=== PATIENT | female | born 1980 | race Caucasian/White ===

== ENCOUNTER 2016-09-05 15:25 | Inpatient (IN) | payer MEDICARE, MEDICAID ==
[~2016-09-05] VITALS: Ht 167.6 cm; Wt 177.0 kg
[2016-09-05 16:28] VITALS: BP 149/82
[2016-09-05] MEDS ORDERED: PALI234D IM (16:50)
[2016-09-05] MEDS ORDERED: QUET200T PO (16:50)
[2016-09-05] MEDS ORDERED: INFLUENZA VIRUS VACCINE QVS 2016-17 (3YR+)/PF 60 MCG/0.5 ML SYRINGE IM ONE (17:00)
[2016-09-05] MEDS ORDERED: ZOLPIDEM TARTRATE 10 MG TABLET PO PRN (17:00)
[2016-09-05 18:23] VITALS: BP 148/93
[2016-09-05] MEDS: LORazepam 2 MG TABLET PO PRN (20:51)
[2016-09-06 08:38] LABS: BASOPHILS % (AUTO) 0.3 % (0.0-2.0); EOSINOPHILS % (AUTO) 3.3 % (1.0-6.0); HEMATOCRIT 36.9 % (36-46); LYMPHOCYTES # (AUTO) 2.7 K/uL (1.0-4.8); LYMPHOCYTES % (AUTO) 29.9 % (22.0-44.0); MEAN CORPUSCULAR HGB CONC 32.4 G/dL (31.0-37.0); MEAN CORPUSCULAR VOLUME 84 fL (80-100); MONOCYTES # (AUTO) 0.5 K/uL (0.1-1.0); NEUTROPHILS # (AUTO) 5.5 K/uL (1.8-7.7); NEUTROPHILS % (AUTO) 61.5 % (40.0-70.0); PLATELET COUNT (AUTO) 351 K/uL (150-450); RED BLOOD CELL COUNT(AUTO) 4.42 MIL/uL (4.00-5.20); RED CELL DISTRIBUTION WIDTH 15.9 % (11.5-14.5)
[2016-09-06 08:49] LABS: HEMOGLOBIN A1C 6.2 % (4.5-6.2)
[2016-09-06 09:25] LABS: ALANINE AMINOTRANSFERASE 26 U/L (12-78); ALBUMIN 2.7 g/dL (3.4-5.0); ANION GAP 7 mmol/L (8-16); ASPARTATE AMINOTRANSFERASE 22 U/L (15-37); BILIRUBIN,TOTAL 0.4 mg/dL (0.1-1.0); CALCIUM, TOTAL 8.3 mg/dL (8.8-10.5); CARBON DIOXIDE 28 mmol/L (22-29); CHLORIDE 103 mmol/L (98-107); CHOL/HDL RATIO 3.4 (3.9-5.7); CREATININE 0.76 mg/dL (0.60-1.30); GLOMERULAR FILTR. RATE CALC > 60 mL/min (>60); POTASSIUM 4.7 mmol/L (3.5-5.1); SODIUM SERUM 138 mmol/L (136-145); TOTAL PROTEIN, SERUM 6.3 g/dL (6.4-8.2); UREA NITROGEN, BLOOD 9 mg/dL (7-18)
[2016-09-06] MEDS: QUEtiapine FUMARATE 200 MG TABLET PO SCH (20:54)
[2016-09-06] MEDS ORDERED: LORazepam 2 MG/ML VIAL ONE (21:10)
[2016-09-06] MEDS ORDERED: HALOPERIDOL LACTATE 5 MG/ML VIAL ONE (21:11)
[2016-09-06] MEDS ORDERED: DiphenhydrAMINE HCL 50 MG/ML VIAL ONE (21:11)
[2016-09-06] MEDS ORDERED: DiphenhydrAMINE HCL 50 MG/ML VIAL IM ONE (21:15)
[2016-09-06] MEDS ORDERED: HALOPERIDOL LACTATE 5 MG/ML VIAL IM ONE (21:15)
[2016-09-06] MEDS ORDERED: LORazepam 2 MG/ML VIAL IM ONE (21:15)
[2016-09-07 08:02] VITALS: BP 132/78
[2016-09-07] MEDS ORDERED: PALIPERIDONE PALMITATE 234 MG/1.5 ML SYRINGE IM SCH (09:00)
[2016-09-07] MEDS ORDERED: LORazepam 2 MG/ML VIAL ONE (10:58)
[2016-09-07] MEDS ORDERED: DiphenhydrAMINE HCL 50 MG/ML VIAL ONE (10:59)
[2016-09-07] MEDS ORDERED: HALOPERIDOL LACTATE 5 MG/ML VIAL ONE (10:59)
[2016-09-07] MEDS ORDERED: DiphenhydrAMINE HCL 50 MG/ML VIAL IM ONE (11:00)
[2016-09-07] MEDS ORDERED: LORazepam 2 MG/ML VIAL IM ONE (11:00)
[2016-09-07] MEDS ORDERED: HALOPERIDOL LACTATE 5 MG/ML VIAL IM ONE (11:00)
[2016-09-07] MEDS: QUEtiapine FUMARATE 200 MG TABLET PO SCH (21:00)
[2016-09-08] MEDS ORDERED: HALOPERIDOL LACTATE 5 MG/ML VIAL ONE (08:21)
[2016-09-08] MEDS ORDERED: LORazepam 2 MG/ML VIAL ONE (08:21)
[2016-09-08] MEDS ORDERED: DiphenhydrAMINE HCL 50 MG/ML VIAL ONE (08:21)
[2016-09-08] MEDS ORDERED: LORazepam 2 MG/ML VIAL IM ONE (08:30)
[2016-09-08] MEDS ORDERED: HALOPERIDOL LACTATE 5 MG/ML VIAL IM ONE (08:30)
[2016-09-08] MEDS ORDERED: DiphenhydrAMINE HCL 50 MG/ML VIAL IM ONE (08:30)
[2016-09-08 08:52] VITALS: BP 141/92
[2016-09-08 09:00] VITALS: BP 117/84
[2016-09-08 16:29] VITALS: BP 126/94
[2016-09-08] MEDS: LITHIUM CARBONATE 300 MG CAPSULE PO SCH (17:00)
[2016-09-08] MEDS: QUEtiapine FUMARATE 200 MG TABLET PO SCH (20:04)
[2016-09-09 06:45] VITALS: BP 124/78
[2016-09-09 08:03] VITALS: BP 120/64
[2016-09-09] MEDS: LITHIUM CARBONATE 300 MG CAPSULE PO SCH ×2 (09:00→17:00)
[2016-09-09] MEDS: QUEtiapine FUMARATE 200 MG TABLET PO SCH (20:10)
[2016-09-10 06:48] VITALS: BP 118/71
[2016-09-10 08:40] VITALS: BP 127/87
[2016-09-10] MEDS: LITHIUM CARBONATE 300 MG CAPSULE PO SCH ×2 (09:00→17:00)
[2016-09-10] MEDS ORDERED: HydrOXYzine PAMOATE 50 MG CAPSULE PO PRN (14:45)
[2016-09-10] MEDS ORDERED: ACETAMINOPHEN 325 MG TABLET PO PRN (14:45)
[2016-09-10] MEDS ORDERED: QUEtiapine FUMARATE 100 MG TABLET PO PRN (14:45)
[2016-09-10] MEDS ORDERED: GuaiFENesin/D-METHORPHAN [SUGAR-FREE] 200-20MG/10 ML SYRUP UDCUP PO PRN (14:45)
[2016-09-10] MEDS ORDERED: MAGNESIUM HYDROXIDE SUSPENSION 30 ML UDCUP PO PRN (14:45)
[2016-09-10] MEDS ORDERED: LOPERAMIDE HCL 2 MG CAPSULE PO PRN (14:45)
[2016-09-10] MEDS ORDERED: MAG HYDROX/AL HYDROX/SIMETH ES 30 ML SUSPENSION UDCUP PO PRN (14:45)
[2016-09-10] MEDS ORDERED: PROMETHAZINE HCL 25 MG TABLET PO PRN (14:45)
[2016-09-10] MEDS: THIAMINE HCL 100 MG TABLET PO SCH (16:30)
[2016-09-10] MEDS ORDERED: HALOPERIDOL LACTATE 5 MG/ML VIAL IM ONE (18:00)
[2016-09-10] MEDS ORDERED: DiphenhydrAMINE HCL 50 MG/ML VIAL IM ONE (18:00)
[2016-09-10] MEDS ORDERED: LORazepam 2 MG/ML VIAL IM ONE (18:00)
[2016-09-10] MEDS ORDERED: QUEtiapine FUMARATE 200 MG TABLET PO SCH (21:00)
[2016-09-10] MEDS: QUEtiapine FUMARATE 200 MG TABLET PO SCH (21:10)
[2016-09-11 08:00] VITALS: BP 116/64
[2016-09-11] MEDS: THIAMINE HCL 100 MG TABLET PO SCH ×2 (08:29→16:13)
[2016-09-11] MEDS: FOLIC ACID 1 MG TABLET PO SCH (08:29)
[2016-09-11] MEDS: MULTIVITAMINS WITH MINERALS, THERAPEUTIC TABLET PO SCH (08:29)
[2016-09-11] MEDS: LITHIUM CARBONATE 300 MG CAPSULE PO SCH (08:30)
[2016-09-11 08:48] LABS: CHOL/HDL RATIO 3.2 (3.9-5.7); CREATINE KINASE, TOTAL 44 U/L (26-192); THYROID STIMULATING HORMONE 3.03 uIU/mL (0.36-3.74)
[2016-09-11 09:33] LABS: HEMOGLOBIN A1C 6.4 % (4.5-6.2)
[2016-09-11 16:17] VITALS: BP 139/87
[2016-09-11] MEDS: QUEtiapine FUMARATE 200 MG TABLET PO SCH (20:19)
[2016-09-12 03:20] VITALS: BP 131/89
[2016-09-12] MEDS: LORazepam 2 MG TABLET PO PRN (03:22)
[2016-09-12] MEDS ORDERED: INSULIN ASPART 100 UNITS/ML SQ PRN (10:30)
[2016-09-12] MEDS ORDERED: GLUCAGON,HUMAN RECOMBINANT 1 MG VIAL IM PRN (10:30)
[2016-09-12] MEDS: THIAMINE HCL 100 MG TABLET PO SCH ×2 (12:47→16:20)
[2016-09-12] MEDS: FOLIC ACID 1 MG TABLET PO SCH (12:47)
[2016-09-12] MEDS: MULTIVITAMINS WITH MINERALS, THERAPEUTIC TABLET PO SCH (12:48)
[2016-09-12] MEDS ORDERED: QUET200T29 PO (13:59)
[2016-09-12 14:04] LABS: HEPATITIS Bs ANTIGEN SCREEN P Negative (Negative); HEPATITIS C AB SCREEN <0.1 s/co ratio (0.0-0.9)
[2016-09-12 16:40] VITALS: BP 122/66
[2016-09-12] MEDS: QUEtiapine FUMARATE 200 MG TABLET PO SCH (20:05)
[2016-09-13] MEDS: THIAMINE HCL 100 MG TABLET PO SCH (08:24)
[2016-09-13] MEDS: FOLIC ACID 1 MG TABLET PO SCH (08:24)
[2016-09-13] MEDS: MULTIVITAMINS WITH MINERALS, THERAPEUTIC TABLET PO SCH (08:24)
== END 2016-09-13 11:10 | disposition home or self-care (01) | DRG 885 ==
LOC: B3A 16:56
PROVIDERS: ADMIT Psychiatry & Neurology Psychiatry; ATTEND Psychiatry & Neurology Psychiatry
DX: F25.0 Schizoaffective disorder, bipolar type (principal); E46 Unspecified protein-calorie malnutrition; Z68.44 Body mass index [BMI] 60.0-69.9, adult; E11.9 Type 2 diabetes mellitus without complications; E55.9 Vitamin D deficiency, unspecified; E66.01 Morbid (severe) obesity due to excess calories; F60.9 Personality disorder, unspecified; K59.00 Constipation, unspecified; R45.850 Homicidal ideations; Z62.819 Personal history of unspecified abuse in childhood; F31.2 Bipolar disorder, current episode manic severe with psychotic features; Z91.14 Patient's other noncompliance with medication regimen; Z28.21 Immunization not carried out because of patient refusal; Z86.718 Personal history of other venous thrombosis and embolism; Z88.8 Allergy status to other drugs, medicaments and biological substances; Z78.1 Physical restraint status
CPT/HCPCS: 80074; 82306; 82607; 82746; 83036; 83735; 84439; 84443; 86592; 87081; J1200; J1630; J2060

== ENCOUNTER 2016-09-20 11:31 | Inpatient (IN) | payer MEDICARE, MEDICAID ==
[~2016-09-20] VITALS: Ht 167.6 cm; Wt 172.4 kg
[~2016-09-20 11:31] MED LIST: QUET200T29 PO
[2016-09-20] MEDS ORDERED: ZOLPIDEM TARTRATE 10 MG TABLET PO PRN (14:15)
[2016-09-20] MEDS ORDERED: HydrOXYzine PAMOATE 50 MG CAPSULE PO PRN (14:15)
[2016-09-20] MEDS ORDERED: GuaiFENesin/D-METHORPHAN [SUGAR-FREE] 200-20MG/10 ML SYRUP UDCUP PO PRN (14:15)
[2016-09-20] MEDS ORDERED: LOPERAMIDE HCL 2 MG CAPSULE PO PRN (14:15)
[2016-09-20] MEDS ORDERED: MAG HYDROX/AL HYDROX/SIMETH ES 30 ML SUSPENSION UDCUP PO PRN (14:15)
[2016-09-20] MEDS ORDERED: MAGNESIUM HYDROXIDE SUSPENSION 30 ML UDCUP PO PRN (14:15)
[2016-09-20] MEDS ORDERED: QUEtiapine FUMARATE 100 MG TABLET PO PRN (14:15)
[2016-09-20] MEDS ORDERED: TUBERCULIN, PURIFIED PROTEIN DERIVATIVE 5 TU/0.1 ML SYG ID ONE (14:15)
[2016-09-20] MEDS ORDERED: PROMETHAZINE HCL 25 MG TABLET PO PRN (14:15)
[2016-09-20] MEDS ORDERED: ACETAMINOPHEN 325 MG TABLET PO PRN (14:15)
[2016-09-20 16:14] VITALS: BP 136/82
[2016-09-20] MEDS ORDERED: INFLUENZA VIRUS VACCINE QVS 2016-17 (3YR+)/PF 60 MCG/0.5 ML SYRINGE IM ONE (17:00)
[2016-09-20] MEDS: THIAMINE HCL 100 MG TABLET PO SCH (17:06)
[2016-09-20 17:34] VITALS: BP 146/85
[2016-09-20] MEDS: QUEtiapine FUMARATE 200 MG TABLET PO SCH (20:15)
[2016-09-21 03:17] VITALS: BP 137/77
[2016-09-21 08:02] LABS: BASOPHILS % (AUTO) 0.3 % (0.0-2.0); EOSINOPHILS % (AUTO) 3.5 % (1.0-6.0); HEMATOCRIT 38.8 % (36-46); HEMOGLOBIN 12.3 g/dL (12.0-16.0); LYMPHOCYTES # (AUTO) 2.8 K/uL (1.0-4.8); LYMPHOCYTES % (AUTO) 35.1 % (22.0-44.0); MEAN CORPUSCULAR HEMOGLOBIN 26.9 pg (26.0-34.0); MEAN CORPUSCULAR HGB CONC 31.8 G/dL (31.0-37.0); MEAN CORPUSCULAR VOLUME 84 fL (80-100); MONOCYTES # (AUTO) 0.3 K/uL (0.1-1.0); NEUTROPHILS # (AUTO) 4.5 K/uL (1.8-7.7); NEUTROPHILS % (AUTO) 57.1 % (40.0-70.0); PLATELET COUNT (AUTO) 380 K/uL (150-450); RED BLOOD CELL COUNT(AUTO) 4.59 MIL/uL (4.00-5.20); RED CELL DISTRIBUTION WIDTH 16.3 % (11.5-14.5)
[2016-09-21 08:17] LABS: HEMOGLOBIN A1C 6.5 % (4.5-6.2)
[2016-09-21 08:24] LABS: ALANINE AMINOTRANSFERASE 27 U/L (12-78); ANION GAP 7 mmol/L (8-16); ASPARTATE AMINOTRANSFERASE 21 U/L (15-37); BILIRUBIN,TOTAL 0.4 mg/dL (0.1-1.0); CALCIUM, TOTAL 8.7 mg/dL (8.8-10.5); CARBON DIOXIDE 30 mmol/L (22-29); CHLORIDE 103 mmol/L (98-107); CHOL/HDL RATIO 3.3 (3.9-5.7); CREATININE 0.81 mg/dL (0.60-1.30); GLOMERULAR FILTR. RATE CALC > 60 mL/min (>60); POTASSIUM 4.1 mmol/L (3.5-5.1); SODIUM SERUM 140 mmol/L (136-145); THYROID STIMULATING HORMONE 3.34 uIU/mL (0.36-3.74); TOTAL PROTEIN, SERUM 6.7 g/dL (6.4-8.2); UREA NITROGEN, BLOOD 12 mg/dL (7-18)
[2016-09-21] MEDS: THIAMINE HCL 100 MG TABLET PO SCH ×2 (09:00→16:15)
[2016-09-21] MEDS: MULTIVITAMINS WITH MINERALS, THERAPEUTIC TABLET PO SCH (09:00)
[2016-09-21] MEDS: FOLIC ACID 1 MG TABLET PO SCH (09:00)
[2016-09-21 16:00] VITALS: BP 130/74
[2016-09-21] MEDS: QUEtiapine FUMARATE 200 MG TABLET PO SCH (20:02)
[2016-09-22 06:00] VITALS: BP 132/78
[2016-09-22 06:32] LABS: GLUCOSE,POINT OF CARE 93 MG/DL (70-110)
[2016-09-22] MEDS: MULTIVITAMINS WITH MINERALS, THERAPEUTIC TABLET PO SCH (09:05)
[2016-09-22] MEDS: FOLIC ACID 1 MG TABLET PO SCH (09:05)
[2016-09-22] MEDS: THIAMINE HCL 100 MG TABLET PO SCH ×2 (09:05→16:43)
[2016-09-22 16:00] VITALS: BP 144/88
[2016-09-22] MEDS: RisperiDONE 1 MG TABLET PO SCH (17:16)
[2016-09-23] MEDS ORDERED: LORazepam 2 MG/ML VIAL ONE (04:14)
[2016-09-23] MEDS ORDERED: HALOPERIDOL LACTATE 5 MG/ML VIAL ONE (04:14)
[2016-09-23] MEDS ORDERED: DiphenhydrAMINE HCL 50 MG/ML VIAL ONE (04:14)
[2016-09-23] MEDS ORDERED: HALOPERIDOL LACTATE 5 MG/ML VIAL IM ONE (04:15)
[2016-09-23] MEDS ORDERED: DiphenhydrAMINE HCL 50 MG/ML VIAL IM ONE (04:15)
[2016-09-23] MEDS ORDERED: LORazepam 2 MG/ML VIAL IM ONE (04:15)
[2016-09-23] MEDS: THIAMINE HCL 100 MG TABLET PO SCH ×2 (09:00→16:20)
[2016-09-23] MEDS: MULTIVITAMINS WITH MINERALS, THERAPEUTIC TABLET PO SCH (09:00)
[2016-09-23] MEDS: RisperiDONE 1 MG TABLET PO SCH ×2 (09:00→16:21)
[2016-09-23] MEDS: FOLIC ACID 1 MG TABLET PO SCH (09:00)
[2016-09-23] MEDS ORDERED: RISP1 PO ×2 (15:26→16:20)
[2016-09-23 16:27] VITALS: BP 131/77
== END 2016-09-23 17:45 | disposition home or self-care (01) | DRG 885 ==
LOC: B3A 16:39 → EDSTATUS 16:41
PROVIDERS: ADMIT Psychiatry & Neurology Psychiatry; ATTEND Psychiatry & Neurology Psychiatry
DX: F31.2 Bipolar disorder, current episode manic severe with psychotic features (principal); Z68.44 Body mass index [BMI] 60.0-69.9, adult; E66.3 Overweight; E66.01 Morbid (severe) obesity due to excess calories; G25.81 Restless legs syndrome; Z79.899 Other long term (current) drug therapy; Z88.8 Allergy status to other drugs, medicaments and biological substances; Z91.19 Patient's noncompliance with other medical treatment and regimen; Z28.21 Immunization not carried out because of patient refusal
CPT/HCPCS: 82962; 83036; 84439; 84443; 86592; 87081; J1200; J1630; J2060

== ENCOUNTER 2022-01-15 14:07 | Inpatient (IN) | payer MEDICARE, MEDICAID ==
[~2022-01-15] VITALS: Ht 165.1 cm; Wt 169.1 kg
[~2022-01-15 14:07] MED LIST changes: -QUET200T29 PO; +RISP1TAB48 PO
[2022-01-15 16:21] LABS: GLUCOSE,POINT OF CARE 220 MG/DL (70-110)
[2022-01-15] MEDS ORDERED: MIDAZOLAM HCL 2 MG/2 ML VIAL IM ONE (16:30)
[2022-01-15] MEDS ORDERED: HALOPERIDOL LACTATE 5 MG/ML VIAL IM ONE (16:30)
[2022-01-15] MEDS ORDERED: DiphenhydrAMINE HCL 50 MG/ML VIAL IM ONE (16:30)
[2022-01-15] MEDS ORDERED: ZOLPIDEM TARTRATE 10 MG TABLET PO PRN (17:45)
[2022-01-15 18:03] LABS: COVID AG,FIA SOURCE NASAL SWAB
[2022-01-15 18:40] LABS: BASOPHILS % (AUTO) 0.4 % (0.0-2.0); EOSINOPHILS % (AUTO) 3.7 % (1.0-6.0); HEMATOCRIT 39.9 % (36-46); LYMPHOCYTES # (AUTO) 1.8 K/uL (1.0-4.8); LYMPHOCYTES % (AUTO) 21.6 % (22.0-44.0); MEAN CORPUSCULAR HEMOGLOBIN 27.8 pg (26.0-34.0); MEAN CORPUSCULAR HGB CONC 32.6 G/dL (31.0-37.0); MEAN CORPUSCULAR VOLUME 85 fL (80-100); MONOCYTES # (AUTO) 0.2 K/uL (0.1-1.0); MONOCYTES % (AUTO) 2.9 % (2.0-9.0); NEUTROPHILS % (AUTO) 71.4 % (40.0-70.0); PLATELET COUNT (AUTO) 295 K/uL (150-450); RED BLOOD CELL COUNT(AUTO) 4.68 MIL/uL (4.00-5.20); RED CELL DISTRIBUTION WIDTH 14.8 % (11.5-14.5)
[2022-01-15 18:48] LABS: ANION GAP 7 mmol/L (8-16); CALCIUM, TOTAL 9.4 mg/dL (8.8-10.5); CARBON DIOXIDE 30 mmol/L (22-29); CHLORIDE 97 mmol/L (98-107); CREATININE 0.77 mg/dL (0.60-1.30); GLOMERULAR FILTR. RATE CALC > 60 mL/min (>60); GLUCOSE,RANDOM 283 mg/dL (70-110); POTASSIUM 3.8 mmol/L (3.5-5.1); SODIUM SERUM 134 mmol/L (136-145); UREA NITROGEN, BLOOD 13 mg/dL (7-18)
[2022-01-15 18:53] LABS: ALANINE AMINOTRANSFERASE 31 U/L (12-78); ALBUMIN 3.2 g/dL (3.4-5.0); ALKALINE PHOSPHATASE 98 U/L (46-116); ASPARTATE AMINOTRANSFERASE 23 U/L (15-37); BILIRUBIN,TOTAL 0.5 mg/dL (0.1-1.0); TOTAL PROTEIN, SERUM 7.4 g/dL (6.4-8.2)
[2022-01-15 20:27] LABS: HCG,QUANTITATIVE < 1 mIU/mL (0-6)
[2022-01-15] MEDS ORDERED: DEXTROSE 50%-WATER 25 GM/50 ML SYRINGE IVP PRN (21:30)
[2022-01-15] MEDS: INSULIN LISPRO 100 UNITS/ML SQ PRN (22:48)
[2022-01-15 23:01] LABS: GLUCOMETER DEV NAME(LOC) 3E.C; GLUCOSE,POINT OF CARE 293 MG/DL (70-110)
[2022-01-16 06:01] VITALS: BP 145/80
[2022-01-16] MEDS: LORazepam 2 MG TABLET PO PRN (06:05)
[2022-01-16] MEDS: HALOPERIDOL 5 MG TABLET PO PRN (06:05)
[2022-01-16 06:12] LABS: GLUCOMETER DEV NAME(LOC) 3E.C; GLUCOSE,POINT OF CARE 254 MG/DL (70-110)
[2022-01-16] MEDS ORDERED: MAGNESIUM HYDROXIDE SUSPENSION 30 ML UDCUP PO PRN (07:00)
[2022-01-16] MEDS ORDERED: ACETAMINOPHEN 325 MG TABLET PO PRN (07:00)
[2022-01-16] MEDS ORDERED: NICOTINE 14 MG/24 HOUR PATCH TD PRN (07:00)
[2022-01-16] MEDS ORDERED: GuaiFENesin/D-METHORPHAN [SUGAR-FREE] 200-20MG/10 ML SYRUP UDCUP PO PRN (07:00)
[2022-01-16] MEDS ORDERED: ONDANSETRON HCL 4 MG TABLET PO PRN (07:00)
[2022-01-16] MEDS ORDERED: ALBUTEROL SULFATE HFA 90 MCG/PUFF 8 GM INHALER IH PRN (07:00)
[2022-01-16] MEDS ORDERED: DOCUSATE SODIUM 100 MG CAPSULE PO PRN (07:00)
[2022-01-16] MEDS ORDERED: PETROLATUM,WHITE 28 GM JELLY TP PRN (07:00)
[2022-01-16] MEDS ORDERED: CloNIDine HCL 0.1 MG TABLET PO PRN (07:00)
[2022-01-16] MEDS ORDERED: MAG HYDROX/AL HYDROX/SIMETH ES 30 ML SUSPENSION UDCUP PO PRN (07:00)
[2022-01-16] MEDS ORDERED: IBUPROFEN 400 MG TABLET PO PRN (07:00)
[2022-01-16] MEDS ORDERED: LOPERAMIDE HCL 2 MG CAPSULE PO PRN (07:00)
[2022-01-16] MEDS: INSULIN LISPRO 100 UNITS/ML SQ PRN ×4 (07:06→21:04)
[2022-01-16] MEDS: BuPROPion HCL 100 MG SR TABLET PO SCH (11:00)
[2022-01-16 11:04] VITALS: BP 157/95
[2022-01-16 11:41] LABS: GLUCOMETER DEV NAME(LOC) 3E.C; GLUCOSE,POINT OF CARE 270 MG/DL (70-110)
[2022-01-16] MEDS: FLUoxetine HCL 10 MG CAPSULE PO SCH (11:53)
[2022-01-16] MEDS: SitaGLIPtin PHOSPHATE 100 MG TABLET PO SCH (16:19)
[2022-01-16] MEDS: RisperiDONE 1 MG TABLET PO SCH ×2 (16:21→20:25)
[2022-01-16 16:35] LABS: GLUCOMETER DEV NAME(LOC) 3E.C; GLUCOSE,POINT OF CARE 267 MG/DL (70-110)
[2022-01-16 20:16] LABS: GLUCOMETER DEV NAME(LOC) 3E.C; GLUCOSE,POINT OF CARE 324 MG/DL (70-110)
[2022-01-16] MEDS: TraZODone HCL 50 MG TABLET PO SCH (20:25)
[2022-01-16 21:37] LABS: APPEARANCE,URINE CLEAR (CLEAR); BILIRUBIN,URINE NEGATIVE (NEGATIVE); GLUCOSE, URINE (UA) >=1000 mg/dL (NEGATIVE); KETONES,URINE NEGATIVE (NEGATIVE); LEUKOCYTE ESTERASE ,URINE MODERATE (NEGATIVE); NITRATE,URINE NEGATIVE (NEGATIVE); OCCULT BLOOD,URINE MODERATE (NEGATIVE); PROTEIN,URINE NEGATIVE (NEGATIVE); SPECIFIC GRAVITIY, URINE 1.021 (1.003-1.030); UROBILINOGEN,URINE <=1.0 mg/dL (<=1.0)
[2022-01-16 21:43] LABS: AMPHET/METH SCREEN,URINE NEGATIVE (NEGATIVE); BARBITURATE SCREEN, URINE NEGATIVE (NEGATIVE); BENZODIAZEPINES SCREEN,URINE POSITIVE (NEGATIVE); CANNABINOID SCREEN,URINE NEGATIVE (NEGATIVE); COCAINE SCREEN,URINE NEGATIVE (NEGATIVE); METHADONE SCREEN, URINE NEGATIVE (NEGATIVE); OPIATE SCREEN,URINE NEGATIVE (NEGATIVE); PHENCYCLIDINE SCREEN,URINE NEGATIVE (NEGATIVE)
[2022-01-16 21:46] LABS: BACTERIA,URINE Rare /HPF (None Seen)
[2022-01-16 21:47] LABS: SQUAMOUS EPITHELIAL CELL,UR Few /LPF (None Seen)
[2022-01-16] MEDS ORDERED: DiphenhydrAMINE HCL 50 MG/ML VIAL ONE (22:33)
[2022-01-16] MEDS: CEPHALEXIN MONOHYDRATE 500 MG CAPSULE PO SCH (22:39)
[2022-01-16] MEDS ORDERED: HALOPERIDOL LACTATE 5 MG/ML VIAL IM ONE (22:45)
[2022-01-16] MEDS ORDERED: LORazepam 2 MG/ML VIAL IM ONE (22:45)
[2022-01-16] MEDS ORDERED: DiphenhydrAMINE HCL 50 MG/ML VIAL IM ONE (22:45)
[2022-01-17] MEDS: INSULIN LISPRO 100 UNITS/ML SQ PRN ×4 (07:05→20:08)
[2022-01-17 07:11] LABS: GLUCOMETER DEV NAME(LOC) 3E.C; GLUCOSE,POINT OF CARE 210 MG/DL (70-110)
[2022-01-17 08:00] VITALS: BP 131/86
[2022-01-17] MEDS: BuPROPion HCL 100 MG SR TABLET PO SCH (09:00)
[2022-01-17] MEDS: CEPHALEXIN MONOHYDRATE 500 MG CAPSULE PO SCH ×3 (09:11→16:24)
[2022-01-17] MEDS: SitaGLIPtin PHOSPHATE 100 MG TABLET PO SCH ×2 (09:11→10:45)
[2022-01-17] MEDS: RisperiDONE 1 MG TABLET PO SCH ×2 (09:12→16:24)
[2022-01-17] MEDS: FLUoxetine HCL 10 MG CAPSULE PO SCH (09:12)
[2022-01-17 11:11] LABS: GLUCOMETER DEV NAME(LOC) 3E.C; GLUCOSE,POINT OF CARE 236 MG/DL (70-110)
[2022-01-17 16:11] LABS: GLUCOMETER DEV NAME(LOC) 3E.C; GLUCOSE,POINT OF CARE 266 MG/DL (70-110)
[2022-01-17 16:40] VITALS: BP 149/98
[2022-01-17 20:17] LABS: GLUCOMETER DEV NAME(LOC) 3E.C; GLUCOSE,POINT OF CARE 299 MG/DL (70-110)
[2022-01-17] MEDS: TraZODone HCL 50 MG TABLET PO SCH (21:00)
[2022-01-17] MEDS: LORazepam 2 MG TABLET PO PRN (22:48)
[2022-01-17] MEDS: HALOPERIDOL 5 MG TABLET PO PRN (22:48)
[2022-01-18] MEDS: INSULIN LISPRO 100 UNITS/ML SQ PRN ×4 (07:02→21:05)
[2022-01-18 07:11] LABS: GLUCOMETER DEV NAME(LOC) 3E.C; GLUCOSE,POINT OF CARE 200 MG/DL (70-110)
[2022-01-18 09:42] VITALS: BP 104/65
[2022-01-18] MEDS: BuPROPion HCL 100 MG SR TABLET PO SCH (10:45)
[2022-01-18] MEDS: RisperiDONE 1 MG TABLET PO SCH ×2 (10:49→16:19)
[2022-01-18] MEDS: CEPHALEXIN MONOHYDRATE 500 MG CAPSULE PO SCH ×3 (10:49→17:32)
[2022-01-18] MEDS: FLUoxetine HCL 10 MG CAPSULE PO SCH (10:50)
[2022-01-18 12:26] LABS: GLUCOMETER DEV NAME(LOC) 3E.C; GLUCOSE,POINT OF CARE 357 MG/DL (70-110)
[2022-01-18 16:01] LABS: GLUCOMETER DEV NAME(LOC) 3E.C; GLUCOSE,POINT OF CARE 279 MG/DL (70-110)
[2022-01-18 16:39] VITALS: BP 147/92
[2022-01-18 20:51] LABS: GLUCOMETER DEV NAME(LOC) 3E.C; GLUCOSE,POINT OF CARE 341 MG/DL (70-110)
[2022-01-18] MEDS: TraZODone HCL 50 MG TABLET PO SCH (21:00)
[2022-01-18 22:25] VITALS: BP 144/88
[2022-01-19 06:16] LABS: GLUCOMETER DEV NAME(LOC) 3E.C; GLUCOSE,POINT OF CARE 218 MG/DL (70-110)
[2022-01-19] MEDS: INSULIN LISPRO 100 UNITS/ML SQ PRN ×2 (06:36→11:30)
[2022-01-19] MEDS: SitaGLIPtin PHOSPHATE 100 MG TABLET PO SCH (08:49)
[2022-01-19] MEDS: FLUoxetine HCL 10 MG CAPSULE PO SCH (08:49)
[2022-01-19] MEDS: RisperiDONE 1 MG TABLET PO SCH ×2 (08:49→17:45)
[2022-01-19] MEDS: BuPROPion HCL 100 MG SR TABLET PO SCH (08:49)
[2022-01-19] MEDS: CEPHALEXIN MONOHYDRATE 500 MG CAPSULE PO SCH ×3 (08:49→17:45)
[2022-01-19 09:11] VITALS: BP 143/87
[2022-01-19 11:51] LABS: GLUCOMETER DEV NAME(LOC) 3E.C; GLUCOSE,POINT OF CARE 325 MG/DL (70-110)
[2022-01-19] MEDS ORDERED: DiphenhydrAMINE HCL 50 MG/ML VIAL ONE (16:00)
[2022-01-19] MEDS ORDERED: DiphenhydrAMINE HCL 50 MG/ML VIAL IM ONE (16:00)
[2022-01-19] MEDS ORDERED: HALOPERIDOL LACTATE 5 MG/ML VIAL IM ONE (16:00)
[2022-01-19] MEDS ORDERED: LORazepam 2 MG/ML VIAL IM ONE (16:00)
[2022-01-19 16:31] LABS: GLUCOMETER DEV NAME(LOC) 3E.C; GLUCOSE,POINT OF CARE 204 MG/DL (70-110)
[2022-01-19 16:35] VITALS: BP 142/96
[2022-01-19] MEDS: DIVALPROEX SODIUM 500 MG DR TABLET PO SCH (17:00)
[2022-01-19] MEDS: TraZODone HCL 50 MG TABLET PO SCH (20:59)
[2022-01-20 07:31] LABS: GLUCOMETER DEV NAME(LOC) 3E.C; GLUCOSE,POINT OF CARE 197 MG/DL (70-110)
[2022-01-20] MEDS ORDERED: CEPHALEXIN MONOHYDRATE 500 MG CAPSULE PO SCH (08:00)
[2022-01-20] MEDS: FLUoxetine HCL 10 MG CAPSULE PO SCH (09:19)
[2022-01-20] MEDS: BuPROPion HCL 100 MG SR TABLET PO SCH (09:19)
[2022-01-20] MEDS: RisperiDONE 1 MG TABLET PO SCH (09:19)
[2022-01-20] MEDS: LORazepam 2 MG TABLET PO PRN (09:19)
[2022-01-20] MEDS: SitaGLIPtin PHOSPHATE 100 MG TABLET PO SCH (09:19)
[2022-01-20] MEDS: DIVALPROEX SODIUM 500 MG DR TABLET PO SCH (09:20)
[2022-01-20 09:50] VITALS: BP 125/82
[2022-01-20] MEDS ORDERED: DIVA-112 PO (11:13)
[2022-01-20] MEDS ORDERED: PROZ10 PO (11:13)
[2022-01-20] MEDS ORDERED: RISP1TAB98 PO (11:13)
[2022-01-20] MEDS ORDERED: BUPR-225 PO (11:13)
[2022-01-20] MEDS ORDERED: TRAZ-252 PO (11:13)
[2022-01-20] MEDS ORDERED: SITA100 PO (11:36)
[2022-01-20] MEDS ORDERED: CEPH-558 PO ×2 (11:41→11:44)
== END 2022-01-20 13:15 | disposition home or self-care (01) | DRG 885 ==
LOC: EMS 14:07 → 3EC 20:03
PROVIDERS: ADMIT Psychiatry & Neurology Child & Adolescent Psychiatry; ATTEND Psychiatry & Neurology Child & Adolescent Psychiatry
DX: F25.0 Schizoaffective disorder, bipolar type (principal); E11.65 Type 2 diabetes mellitus with hyperglycemia; Z68.44 Body mass index [BMI] 60.0-69.9, adult; E87.1 Hypo-osmolality and hyponatremia; Z20.822 Contact with and (suspected) exposure to COVID-19; E66.01 Morbid (severe) obesity due to excess calories; F41.9 Anxiety disorder, unspecified; F99 Mental disorder, not otherwise specified; Z88.8 Allergy status to other drugs, medicaments and biological substances
CPT/HCPCS: 80053; 80307; 81001; 82962; 84702; 84703; 85025; 87086; 99285; G0480; J1200; J1630; J2060; J2250

== ENCOUNTER 2022-02-09 06:59 | Emergency (ER) | payer MEDICARE, OTHER ==
[~2022-02-09] VITALS: Ht 165.1 cm; Wt 145.4 kg
[~2022-02-09 06:59] MED LIST changes: +BUPR-225 PO; +CEPH-558 PO; +DIVA-112 PO; +PROZ10 PO; -RISP1TAB48 PO; +RISP1TAB98 PO; +SITA100 PO; +TRAZ-252 PO
[2022-02-09 07:46] LABS: GLUCOSE,POINT OF CARE 329 MG/DL (70-110)
[2022-02-09 08:05] VITALS: BP 148/96
[2022-02-09 08:07] LABS: COVID AG,FIA SOURCE NASOPHARYNGEAL
== END 2022-02-09 09:47 | disposition home or self-care (01) ==
LOC: EMS 07:00
DX: R45.1 Restlessness and agitation (principal); F32.9 Major depressive disorder, single episode, unspecified; F20.9 Schizophrenia, unspecified; E11.9 Type 2 diabetes mellitus without complications; Z88.8 Allergy status to other drugs, medicaments and biological substances; Z79.899 Other long term (current) drug therapy; Z20.822 Contact with and (suspected) exposure to COVID-19
CPT/HCPCS: 82962; 99282

== ENCOUNTER 2022-02-09 13:55 | Inpatient (IN) | payer MEDICARE, MEDICAID ==
[~2022-02-09] VITALS: Ht 165.1 cm; Wt 173.4 kg
[2022-02-09] MEDS ORDERED: HALOPERIDOL 5 MG TABLET PO PRN (14:30)
[2022-02-09] MEDS ORDERED: LORazepam 2 MG TABLET PO PRN (14:30)
[2022-02-09] MEDS ORDERED: ZOLPIDEM TARTRATE 10 MG TABLET PO PRN (14:30)
[2022-02-09] MEDS ORDERED: PNEUMOCOCCAL VACCINE POLYVALENT 0.5 ML VIAL [PPSV23] IM. ONE (15:00)
[2022-02-09] MEDS: SitaGLIPtin PHOSPHATE 50 MG TABLET PO SCH (16:19)
[2022-02-09 16:57] VITALS: BP 149/80
[2022-02-09] MEDS ORDERED: IBUPROFEN 600 MG TABLET PO PRN (17:00)
[2022-02-09] MEDS ORDERED: PETROLATUM,WHITE 28 GM JELLY TP PRN (17:00)
[2022-02-09] MEDS ORDERED: ACETAMINOPHEN 325 MG TABLET PO PRN (17:00)
[2022-02-09] MEDS ORDERED: CloNIDine HCL 0.1 MG TABLET PO PRN (17:00)
[2022-02-09] MEDS ORDERED: BACITRACIN 28 GM OINTMENT TP PRN (17:00)
[2022-02-09] MEDS ORDERED: BENZOCAINE/MENTHOL LOZENGE PO PRN (17:00)
[2022-02-09] MEDS ORDERED: ALBUTEROL SULFATE HFA 90 MCG/PUFF 8 GM INHALER IH PRN (17:00)
[2022-02-09] MEDS ORDERED: OMEPRAZOLE 20 MG CAPSULE PO PRN (17:00)
[2022-02-09] MEDS ORDERED: LOPERAMIDE HCL 2 MG CAPSULE PO PRN (17:00)
[2022-02-09] MEDS ORDERED: ONDANSETRON HCL 4 MG TABLET PO PRN (17:00)
[2022-02-09] MEDS ORDERED: DOCUSATE SODIUM 100 MG CAPSULE PO PRN (17:00)
[2022-02-09] MEDS ORDERED: MAGNESIUM HYDROXIDE SUSPENSION 30 ML UDCUP PO PRN (17:00)
[2022-02-09] MEDS ORDERED: MAG HYDROX/AL HYDROX/SIMETH ES 30 ML SUSPENSION UDCUP PO PRN (17:00)
[2022-02-09] MEDS ORDERED: GLUCAGON,HUMAN RECOMBINANT 1 MG VIAL IM PRN (17:00)
[2022-02-09 20:01] VITALS: BP 122/70
[2022-02-09 20:21] LABS: GLUCOMETER DEV NAME(LOC) BV3S.; GLUCOSE,POINT OF CARE 312 MG/DL (70-110)
[2022-02-09] MEDS ORDERED: RisperiDONE 2 MG TABLET PO SCH (22:15)
[2022-02-09 23:55] LABS: GLUCOMETER DEV NAME(LOC) BV3S.; GLUCOSE,POINT OF CARE 266 MG/DL (70-110)
[2022-02-09] MEDS: TraZODone HCL 50 MG TABLET PO SCH (23:57)
[2022-02-09] MEDS: INSULIN LISPRO 100 UNITS/ML SQ PRN (23:59)
[2022-02-10] MEDS: INSULIN LISPRO 100 UNITS/ML SQ PRN (06:39)
[2022-02-10 06:41] LABS: GLUCOMETER DEV NAME(LOC) BV3S.; GLUCOSE,POINT OF CARE 262 MG/DL (70-110)
[2022-02-10] MEDS: NYSTATIN 15 GM POWDER BOTTLE TP SCH ×2 (08:17→16:21)
[2022-02-10] MEDS: SitaGLIPtin PHOSPHATE 50 MG TABLET PO SCH ×2 (08:17→16:21)
[2022-02-10] MEDS: RisperiDONE 2 MG TABLET PO SCH ×2 (09:00→21:00)
[2022-02-10] MEDS: DIVALPROEX SODIUM 500 MG DR TABLET PO SCH ×2 (09:00→21:00)
[2022-02-10 09:13] VITALS: BP 101/61
[2022-02-10 12:01] LABS: GLUCOMETER DEV NAME(LOC) BV3S.; GLUCOSE,POINT OF CARE 284 MG/DL (70-110)
[2022-02-10] MEDS ORDERED: HALOPERIDOL LACTATE 5 MG/ML VIAL ONE (16:18)
[2022-02-10] MEDS ORDERED: LORazepam 2 MG/ML VIAL ONE (16:18)
[2022-02-10] MEDS ORDERED: DiphenhydrAMINE HCL 50 MG/ML VIAL ONE (16:18)
[2022-02-10] MEDS ORDERED: DiphenhydrAMINE HCL 50 MG/ML VIAL IM ONE (16:30)
[2022-02-10] MEDS ORDERED: LORazepam 2 MG/ML VIAL IM ONE (16:30)
[2022-02-10] MEDS ORDERED: HALOPERIDOL LACTATE 5 MG/ML VIAL IM ONE (16:30)
[2022-02-10 20:10] VITALS: BP 108/64
[2022-02-10] MEDS: TraZODone HCL 50 MG TABLET PO SCH (21:00)
[2022-02-11] MEDS: INSULIN LISPRO 100 UNITS/ML SQ PRN (06:40)
[2022-02-11 06:51] LABS: GLUCOMETER DEV NAME(LOC) BV3S.; GLUCOSE,POINT OF CARE 215 MG/DL (70-110)
[2022-02-11 08:25] VITALS: BP 122/66
[2022-02-11] MEDS: RisperiDONE 2 MG TABLET PO SCH ×2 (08:28→20:45)
[2022-02-11] MEDS: DIVALPROEX SODIUM 500 MG DR TABLET PO SCH ×2 (08:28→20:45)
[2022-02-11] MEDS: NYSTATIN 15 GM POWDER BOTTLE TP SCH ×2 (08:29→16:07)
[2022-02-11] MEDS: SitaGLIPtin PHOSPHATE 50 MG TABLET PO SCH ×2 (08:29→16:06)
[2022-02-11 12:06] LABS: GLUCOMETER DEV NAME(LOC) BV3S.; GLUCOSE,POINT OF CARE 245 MG/DL (70-110)
[2022-02-11 17:02] LABS: GLUCOMETER DEV NAME(LOC) BV3S.; GLUCOSE,POINT OF CARE 249 MG/DL (70-110)
[2022-02-11 20:12] VITALS: BP 117/62
[2022-02-11] MEDS: TraZODone HCL 50 MG TABLET PO SCH (20:48)
[2022-02-12 06:11] LABS: GLUCOMETER DEV NAME(LOC) BV3S.; GLUCOSE,POINT OF CARE 199 MG/DL (70-110)
[2022-02-12 08:17] VITALS: BP 124/82
[2022-02-12] MEDS: DIVALPROEX SODIUM 500 MG DR TABLET PO SCH ×2 (09:00→19:59)
[2022-02-12] MEDS: RisperiDONE 2 MG TABLET PO SCH ×2 (09:00→19:58)
[2022-02-12] MEDS: SitaGLIPtin PHOSPHATE 50 MG TABLET PO SCH ×2 (09:51→16:06)
[2022-02-12] MEDS: NYSTATIN 15 GM POWDER BOTTLE TP SCH ×2 (09:51→16:07)
[2022-02-12] MEDS: TraZODone HCL 50 MG TABLET PO SCH (19:58)
[2022-02-12 20:10] LABS: GLUCOMETER DEV NAME(LOC) BV3S.; GLUCOSE,POINT OF CARE 240 MG/DL (70-110)
[2022-02-12 20:12] VITALS: BP 118/76
[2022-02-13 06:26] LABS: GLUCOMETER DEV NAME(LOC) BV3S.; GLUCOSE,POINT OF CARE 198 MG/DL (70-110)
[2022-02-13 07:14] LABS: BASOPHILS % (AUTO) 0.4 % (0.0-2.0); EOSINOPHILS % (AUTO) 3.3 % (1.0-6.0); HEMATOCRIT 36.5 % (36-46); HEMOGLOBIN 12.3 g/dL (12.0-16.0); LYMPHOCYTES # (AUTO) 1.8 K/uL (1.0-4.8); LYMPHOCYTES % (AUTO) 24.2 % (22.0-44.0); MEAN CORPUSCULAR HEMOGLOBIN 28.1 pg (26.0-34.0); MEAN CORPUSCULAR HGB CONC 33.6 G/dL (31.0-37.0); MEAN CORPUSCULAR VOLUME 84 fL (80-100); MONOCYTES # (AUTO) 0.4 K/uL (0.1-1.0); MONOCYTES % (AUTO) 4.6 % (2.0-9.0); NEUTROPHILS # (AUTO) 5.2 K/uL (1.8-7.7); NEUTROPHILS % (AUTO) 67.5 % (40.0-70.0); PLATELET COUNT (AUTO) 281 K/uL (150-450); RED BLOOD CELL COUNT(AUTO) 4.36 MIL/uL (4.00-5.20); RED CELL DISTRIBUTION WIDTH 14.7 % (11.5-14.5)
[2022-02-13 07:52] LABS: ALANINE AMINOTRANSFERASE 27 U/L (12-78); ALKALINE PHOSPHATASE 91 U/L (46-116); ANION GAP 8 mmol/L (8-16); ASPARTATE AMINOTRANSFERASE 30 U/L (15-37); BILIRUBIN,TOTAL 0.5 mg/dL (0.1-1.0); CARBON DIOXIDE 30 mmol/L (22-29); CHLORIDE 100 mmol/L (98-107); CREATININE 0.68 mg/dL (0.60-1.30); GLUCOSE,RANDOM 208 mg/dL (70-110); POTASSIUM 4.1 mmol/L (3.5-5.1); SODIUM SERUM 138 mmol/L (136-145); TOTAL PROTEIN, SERUM 6.5 g/dL (6.4-8.2); UREA NITROGEN, BLOOD 9 mg/dL (7-18)
[2022-02-13 07:53] LABS: ALBUMIN 2.7 g/dL (3.4-5.0); CHOL/HDL RATIO 3.7 (3.9-5.7); CHOLESTEROL 168 mg/dL (131-200); HDL CHOLESTEROL 46 mg/dL (40-60); HEMOGLOBIN A1C 10.2 % (3.8-5.6); LDL CHOL (CALC.) 94 mg/dL (0-130); THYROID STIMULATING HORMONE 1.92 uIU/mL (0.36-3.74); TRIGLYCERIDES 139 mg/dL (15-150)
[2022-02-13 07:57] LABS: GLOMERULAR FILTR. RATE CALC > 60 mL/min (>60)
[2022-02-13 08:11] VITALS: BP 132/74
[2022-02-13] MEDS: DIVALPROEX SODIUM 500 MG DR TABLET PO SCH (09:00)
[2022-02-13] MEDS: SitaGLIPtin PHOSPHATE 50 MG TABLET PO SCH (09:57)
[2022-02-13] MEDS: RisperiDONE 2 MG TABLET PO SCH (09:57)
[2022-02-13] MEDS: NYSTATIN 15 GM POWDER BOTTLE TP SCH (09:59)
[2022-02-13] MEDS ORDERED: TRAZ-252 PO (11:01)
[2022-02-13] MEDS ORDERED: RISP2TAB86 PO (11:01)
[2022-02-13] MEDS ORDERED: DIVA-112 PO (11:01)
[2022-02-13 13:41] LABS: GLUCOMETER DEV NAME(LOC) BV3S.; GLUCOSE,POINT OF CARE 221 MG/DL (70-110)
== END 2022-02-13 13:47 | disposition home or self-care (01) | DRG 885 ==
LOC: B3A 14:16
PROVIDERS: ADMIT Psychiatry & Neurology Psychiatry; ATTEND Psychiatry & Neurology Child & Adolescent Psychiatry
DX: F25.0 Schizoaffective disorder, bipolar type (principal); Z68.44 Body mass index [BMI] 60.0-69.9, adult; E11.9 Type 2 diabetes mellitus without complications; I10 Essential (primary) hypertension; E66.01 Morbid (severe) obesity due to excess calories; F41.9 Anxiety disorder, unspecified; E78.00 Pure hypercholesterolemia, unspecified; G47.00 Insomnia, unspecified; K59.00 Constipation, unspecified; Z88.8 Allergy status to other drugs, medicaments and biological substances
CPT/HCPCS: 80053; 80061; 82962; 83036; 84439; 84443; 85025; 90732; J1200; J1630; J2060